=== PATIENT | female | born 1990 | race Two or more races ===

== ENCOUNTER 2021-11-23 04:31 | Inpatient (IN) | payer OTHER ==
[~2021-11-23] VITALS: Ht 152.4 cm; Wt 98.9 kg
[2021-11-23] MEDS ORDERED: PRENATAL TABLE1 EAC3 (05:40)
== END 2021-11-29 14:18 | disposition home or self-care (01) | DRG 807 ==
LOC: OB/GYN 04:31 → LDR 04:31 → OB/GYN 11-25 10:45
PROVIDERS: ADMIT Obstetrics & Gynecology; ATTEND Obstetrics & Gynecology Gynecology
PROC: 4A1HXCZ Monitoring of Products of Conception, Cardiac Rate, External Approach (ICD-10-PCS; 2021-11-23)
PROC: 10E0XZZ Delivery of Products of Conception, External Approach (ICD-10-PCS; principal; 2021-11-27)
PROC: 0KQM0ZZ Repair Perineum Muscle, Open Approach (ICD-10-PCS; 2021-11-27)
DX: O70.1 Second degree perineal laceration during delivery (principal); Z37.0 Single live birth; O42.013 Preterm premature rupture of membranes, onset of labor within 24 hours of rupture, third trimester; Z3A.34 34 weeks gestation of pregnancy; Z20.822 Contact with and (suspected) exposure to COVID-19

== ENCOUNTER 2024-08-21 17:31 | Emergency (ER) | payer OTHER ==
[~2024-08-21] VITALS: Ht 162.6 cm; Wt 90.7 kg
[~2024-08-21 17:31] MED LIST: PRENATAL TABLE1 EAC3
[2024-08-21 19:05] LABS: BASO % 0.5 % (0.1-1.2); EOS # 0.08 (0.04-0.54); EOS % 0.6 % (0.7-7.0); HEMATOCRIT 37.1 % (34.1-44.9); HEMOGLOBIN 12.7 g/dL (11.2-15.7); MEAN CORPUSCULAR HEMOGLOBIN 30.5 pg (25.6-32.2); MONO # 0.84 (0.24-0.82); MONO % 6.5 % (4.7-12.5); NEUT # 9.62 (1.56-6.13); NEUT % 74.4 % (34.0-71.1); PLATELET COUNT 271 K/uL (163-369); RED BLOOD COUNT 4.17 M/uL (3.93-5.22); RED CELL DISTRIBUTION WIDTH 13.2 % (11.6-14.4)
[2024-08-21 19:44] LABS: CALCIUM 9.2 mg/dL (8.5-10.1); CREATININE SERUM 0.84 mg/dL (0.55-1.02); GFR 77.61; POTASSIUM 3.68 mEq/L (3.5-5.1)
[2024-08-21 20:21] LABS: PH,URINE 5.5 (5.0-8.0); URINE APPEARANCE Clear; URINE BILIRRUBIN Negative (NEGATIVE); URINE BLOOD Large; URINE COLOR Yellow; URINE GLUCOSE Negative (NEGATIVE); URINE KETONE Trace (NEGATIVE); URINE LEUKOCYTE Negative; URINE NITRATE Negative; URINE PROTEIN Negative (NEGATIVE); URINE UROBILINOGEN 0.2 E.U./dl
[2024-08-21 20:37] LABS: URINE BACTERIA 72.2 uL (0.0-1933); URINE EPITHELIAL CELLS 14.5 uL (0.0-38.8); URINE RBC 6.3 uL (0.0-20.8); URINE WBC 5.3 uL (0.0-23.2)
[2024-08-21 21:25] LABS: URINE CAST 0.58 uL (0.0-1.40)
[2024-08-21 21:27] LABS: URINE YEAST NEGATIVE /hpf
== END 2024-08-22 01:45 | disposition home or self-care (01) ==
LOC: ER 17:47
PROVIDERS: Emergency Medicine
DX: O20.9 Hemorrhage in early pregnancy, unspecified (principal); Z3A.10 10 weeks gestation of pregnancy; Z88.2 Allergy status to sulfonamides

== ENCOUNTER 2025-01-27 08:57 | Outpatient (CLI) | payer OTHER | END 2025-01-27 09:57 | disposition home or self-care (01) | LOC: NST 08:57 | PROVIDERS: ATTEND Obstetrics & Gynecology Maternal & Fetal Medicine | DX: Z34.83 Encounter for supervision of other normal pregnancy, third trimester (principal) ==

== ENCOUNTER 2025-02-17 09:13 | Outpatient (CLI) | payer OTHER | END 2025-02-17 10:10 | disposition home or self-care (01) | LOC: NST 09:13 | PROVIDERS: ATTEND Obstetrics & Gynecology Maternal & Fetal Medicine | DX: Z34.83 Encounter for supervision of other normal pregnancy, third trimester (principal) ==